=== PATIENT | male | born 1995 | race Hispanic/Latino ===

== ENCOUNTER 2019-12-30 03:50 | Emergency (ER) | payer SELFPAY ==
[~2019-12-30] VITALS: Ht 165.1 cm; Wt 74.8 kg
[2019-12-30] MEDS ORDERED: ONDANSETRON HCL INJ 2MG/ML 2ML 2 MG/ML VIAL IV STA (04:05)
[2019-12-30] MEDS ORDERED: SODIUM CHLORIDE 0.9% 1000ML 1,000 ML IV ONE (04:15)
[2019-12-30] MEDS ORDERED: SODIUM CHLORIDE 0.9% 1000ML 1,000 ML IV SCH (04:15)
[2019-12-30] MEDS ORDERED: ONDANSETRON HCL INJ 2MG/ML 2ML 2 MG/ML VIAL ONE (04:16)
[2019-12-30] MEDS ORDERED: SODIUM CHLORIDE 0.9% 1000ML 1,000 ML ONE (04:16)
--- NOTE | 2019-12-30 04:23 | Emergency Department Note ---
History of Present Illnes History of Present Illness History of Present Illness This is a 24 year old male arrives to the ED after being intoxicated at a friend's house patient admits to binge drinking since during afternoon. Family called 911. Patient intoxicated vomited a couple times by EMS Radiation: Reports non-radiation Severity: mild Onset quality: sudden Timing of current episode: constant Past Medical/Family History Physician Review I have reviewed the patient's past medical and family history. Any updates have been documented here. Review of Systems Review of Systems Constitutional: Reports no symptoms EENTM: Reports no symptoms Cardiovascular: Reports no symptoms Respiratory: Reports no symptoms Gastrointestinal: Reports no symptoms Genitourinary: Reports no symptoms Musculoskeletal: Reports no symptoms Integumentary: Reports no symptoms Neurological: Reports no symptoms Psychological: Reports no symptoms Endocrine: Reports no symptoms Hematological/Lymphatic: Reports no symptoms Physical Exam Related Data Allergies: Coded Allergies: No Known Drug Allergies (Verified Allergy, Unknown, 12/30/19) Physical Exam CONSTITUTIONAL Constitutional: Present well-developed, Present well-nourished HENT HENT: Present normocephalic, Present atraumatic, Present oropharynx clear/moist, Present nose normal HENT L/R: Present left ext ear normal, Present right ext ear normal EYES Eyes: Reports PERRL, Reports conjunctivae normal NECK Neck: Present ROM normal PULMONARY Pulmonary: Present effort normal, Present breath sounds normal CARDIOVASCULAR Cardiovascular: Present regular rhythm, Present heart sounds normal, Present capillary refill normal, Present normal rate GASTROINTESTINAL Abdominal: Present soft, Present nontender, Present bowel sounds normal GENITOURINARY Genitourinary: Present exam deferred SKIN Skin: Present warm, Present dry MUSCULOSKELETAL Musculoskeletal: Present ROM normal NEUROLOGICAL Neurological: Present alert, Present oriented x 3, Present no gross motor or sensory deficits PSYCHOLOGICAL Psychological: Present mood/affect normal, Present judgement normal Assessment & Plan Medical Decision Making MDM 24-year-old male arrives to the ED intoxicated, and vomiting in route. Chest x- ray unremarkable. Patient given fluids and Zofran the ED in stable for discharge home with family. Assessment & Plan Final Impression: (1) Alcohol intoxication Depart Disposition: HOME, SELF-CARE EDELMIRA CALI DO Dec 30, 2019 04:22
--- NOTE | 2019-12-30 05:16 | Diagnostic Imaging Report ---
EXAMINATION: CHEST SINGLE (PORTABLE) INDICATION: VOMITING COMPARISON: None FINDINGS: Shallow lung volumes and patient rotation limit evaluation. Heart size is accentuated by shallow lung volumes. Hazy densities throughout the left lung. No pneumothorax. IMPRESSION: Limited exam. Asymmetric hazy densities projecting over the left lung may be due to shallow lung volumes and patient rotation. No definite acute process. Consider repeat exam with lateral view if chronically warranted. Signed by: Víctor Jacob MD on 12/30/2019 5:12 AM
[2019-12-30 05:58] VITALS: BP 110/72
== END 2019-12-30 06:18 | disposition home or self-care (01) ==
LOC: ER 04:05
DX: F10.129 Alcohol abuse with intoxication, unspecified (principal)
CPT/HCPCS: 71045; 99284; J2405; J7030